=== PATIENT | female | born 1985 | race Caucasian/White ===

== ENCOUNTER 2020-12-24 04:34 | Day surgery (SDC) | payer OTHER ==
[2020-12-20 16:52] VITALS: BMI 36.6
[2020-12-24] MEDS ORDERED: MIDAZOLAM HCL 2 MG/2 ML SINGLE DOSE VIAL ONE ×2 (10:57)
[2020-12-24 12:14] VITALS: TEMP 97.8
[2020-12-24 14:11] VITALS: BP 130/80; PULSE 72
== END 2020-12-24 13:50 | disposition home or self-care (01) ==
LOC: JASU-SURG 04:34
PROVIDERS: ATTEND Urology
PROC: 0TF4XZZ Fragmentation in Left Kidney Pelvis, External Approach (ICD-10-PCS; principal; 2020-12-24 11:30)
DX: N20.0 Calculus of kidney (principal)
CPT/HCPCS: 81025

== ENCOUNTER 2021-03-18 04:41 | Day surgery (SDC) | payer OTHER ==
[2021-03-14 15:11] VITALS: BMI 36.0
[2021-03-18] MEDS ORDERED: MIDAZOLAM HCL 2 MG/2 ML SINGLE DOSE VIAL ONE (17:48)
[2021-03-18] MEDS ORDERED: PROPOFOL 20 ML ONE (18:01)
[2021-03-18 18:59] VITALS: BP 135/84; PULSE 80; TEMP 97.8
== END 2021-03-18 19:01 | disposition home or self-care (01) ==
LOC: JASU-SURG 04:41
PROVIDERS: ATTEND Urology
PROC: 0TF3XZZ Fragmentation in Right Kidney Pelvis, External Approach (ICD-10-PCS; principal; 2021-03-18 15:30)
DX: N20.0 Calculus of kidney (principal)
CPT/HCPCS: 81025

== ENCOUNTER 2023-03-02 07:46 | Emergency (ER) | payer OTHER ==
[2023-03-02 07:56] VITALS: TEMP 98; BMI 41.0
[2023-03-02] MEDS ORDERED: IBUPROFEN 600 MG TABLET (FP) PO ONE ×2 (08:09→08:18)
[2023-03-02 08:44] VITALS: BP 145/97; PULSE 88; RESP 18
== END 2023-03-02 08:44 | disposition home or self-care (01) ==
LOC: JER 07:46 → JERFT 07:46
DX: H92.01 Otalgia, right ear (principal); H60.91 Unspecified otitis externa, right ear; J06.9 Acute upper respiratory infection, unspecified; Z20.822 Contact with and (suspected) exposure to COVID-19
CPT/HCPCS: 0241U-QW; 99283-25